=== PATIENT | male | born 1960 | race African-American/Black ===

== ENCOUNTER 2017-10-27 02:38 | Inpatient (IN) | payer OTHER, MEDICAID ==
[2017-10-27] MEDS: ALBUTEROL 0.5% (NEB) 2.5 MG/0.5 ML AMP INH (03:01)
[2017-10-27] MEDS: IPRATROPIUM (NEB) 0.5 MG/2.5 ML AMP INH (03:01)
[2017-10-27] MEDS: METHYLPREDNISOLONE 125 MG INJ IV (03:18)
[2017-10-27 04:05] LABS: ADD MAN DIFF? NO
[2017-10-27 04:08] LABS: WHITE BLOOD COUNT 7.2 10^3/ul (4.8-10.8)
[2017-10-27 04:08] LABS: BASOPHIL # 0.1 10^3/ul (0.0-0.1); BASOPHILS % 1.1 % (0.0-2.0); EOSINOPHILS # 0.2 10^3/ul (0.0-0.5); EOSINOPHILS % 3.2 % (0.0-7.0); HEMOGLOBIN 12.4 g/dl (14.0-18.0); LYMPHOCYTES # 2.5 10^3/ul (0.8-2.9); LYMPHOCYTES % 34.8 % (15.0-51.0); MEAN CORPUSCULAR HEMOGLOBIN 33.8 pg (29.0-33.0); MEAN CORPUSCULAR HGB CONC 32.6 g/dl (32.0-37.0); MEAN CORPUSCULAR VOLUME 103.5 fl (82.0-101.0); MEAN PLATELET VOLUME 11.9 fl (7.4-10.4); MONOCYTE # 0.5 10^3/ul (0.3-0.9); MONOCYTES % 7.1 % (0.0-11.0); NEUTROPHIL # 3.8 10^3/ul (1.6-7.5); NEUTROPHILS % 52.8 % (39.0-77.0); NUCLEATED RED BLOOD CELLS% 0.6 /100WBC (0.0-0.0); PLATELET COUNT 212 10^3/UL (140-415); RED BLOOD COUNT 3.67 10^6/ul (4.70-6.10); RED CELL DISTRIBUTION WIDTH 13.2 % (11.5-14.5)
[2017-10-27 04:27] LABS: INR 1.02; PROTIME 13.5 Sec (11.9-14.9); PT RATIO 1.1
[2017-10-27 04:28] LABS: PARTIAL THROMBOPLASTIN TIME 25.8 Sec (25.0-35.0)
[2017-10-27] MEDS: FUROSEMIDE 40 MG INJ IV ×2 (04:59→08:56)
[2017-10-27 05:12] LABS: ALANINE AMINOTRANSFERASE 30 IU/L (13-69); ALBUMIN 4.9 g/dl (3.3-4.9); ALKALINE PHOSPHATASE 65 IU/L (42-121); ANION GAP 26 (8-16); ASPARTATE AMINO TRANSFERASE 25 IU/L (15-46); BILIRUBIN,INDIRECT 0.6 mg/dl (0-1.1); BILIRUBIN,TOTAL 0.6 mg/dl (0.2-1.3); BLOOD UREA NITROGEN 42 mg/dl (7-20); CALCIUM 10.3 mg/dl (8.4-10.2); CARBON DIOXIDE 28 mmol/L (21-31); CHLORIDE 96 mmol/L (97-110); CREATININE 10.96 mg/dl (0.61-1.24); GLUCOSE 150 mg/dl (70-220); POTASSIUM 4.5 mmol/L (3.5-5.1); SODIUM 145 mmol/L (135-144); TOTAL PROTEIN 8.4 g/dl (6.1-8.1)
[2017-10-27 05:24] LABS: TROPONIN-I 0.111 ng/ml (0.00-0.12)
[2017-10-27 05:25] LABS: AADO2 Arterial 563.1 mmHg (7.0-24.0); Allen Test ACCEPTAB; Arterial Base Excess 0.1 mmol/L (-3.0-3); Arterial Blood Gas Oxygen Sat 97.3 mmHG (95.0-98.0); Arterial COHb 0.6 % (0.0-3.0); Arterial Fraction of Oxyhgb 96.6 % (93.0-99.0); Arterial HCO3 25.3 mmol/L (22.0-26.0); Arterial MetHb 0.1 % (0.0-1.5); Arterial Total Hemglobin 12.7 g/dl (12.0-18.0); Arterial pCO2 42.9 mmhg (35-45); Blood Gas IEPAP 20/5; Blood Gas PS 15; MODE BIPAP - S/T; Site Right Radial
[2017-10-27 05:37] LABS: B-TYPE NATRIURETIC PEPTIDE 91400 PG/ML (0-125)
[2017-10-27] MEDS ORDERED: LORAZEPAM 0.5 MG TAB PO (07:00)
[2017-10-27] MEDS ORDERED: morphine 2 MG INJ IV (07:00)
[2017-10-27] MEDS ORDERED: ACETAMINOPHEN 325 MG TAB PO (07:00)
[2017-10-27] MEDS ORDERED: ONDANSETRON 4 MG INJ IV (07:00)
[2017-10-27] MEDS ORDERED: NACL 0.9% 3 ML SYG IV (07:00)
[2017-10-27] MEDS: FAMOTIDINE 20 MG TAB PO ×2 (08:51→21:18)
[2017-10-27] MEDS: ASPIRIN 325 MG TAB PO (08:51)
[2017-10-27] MEDS: CLOPIDOGREL 75 MG TAB PO (08:51)
[2017-10-27] MEDS: NICOTINE (7 MG/24 HR) PATCH TRANSDERM (08:51)
[2017-10-27] MEDS: LISINOPRIL 10 MG TAB PO (08:52)
[2017-10-27] MEDS: FOLIC ACID 1 MG TAB PO (08:52)
[2017-10-27] MEDS: MULTIVIT/CA CARB/B CMPLX/FA TAB PO (08:52)
[2017-10-27] MEDS: HEPARIN 5,000 UNIT/0.5 ML VIAL SC ×2 (08:55→21:19)
[2017-10-27 11:06] LABS: CREATINE KINASE 140 IU/L (23-200)
[2017-10-27 11:18] LABS: CK INDEX 1.5; TROPONIN-I 0.081 ng/ml (0.00-0.12)
[2017-10-27 11:21] LABS: CK-MB 2.04 ng/ml (0.0-2.4)
[2017-10-27] MEDS: ATORVASTATIN 20 MG TAB PO (22:20)
[2017-10-28] MEDS: MULTIVIT/CA CARB/B CMPLX/FA TAB PO (08:40)
[2017-10-28] MEDS: NICOTINE (7 MG/24 HR) PATCH TRANSDERM (08:40)
[2017-10-28] MEDS: FAMOTIDINE 20 MG TAB PO ×2 (08:40→20:22)
[2017-10-28] MEDS: ASPIRIN 325 MG TAB PO (08:41)
[2017-10-28] MEDS: CLOPIDOGREL 75 MG TAB PO (08:41)
[2017-10-28] MEDS: FOLIC ACID 1 MG TAB PO (08:41)
[2017-10-28] MEDS: FUROSEMIDE 40 MG INJ IV (08:41)
[2017-10-28] MEDS: LISINOPRIL 10 MG TAB PO (08:41)
[2017-10-28] MEDS: HEPARIN 5,000 UNIT/0.5 ML VIAL SC ×2 (08:43→20:24)
[2017-10-28 08:48] LABS: ADD MAN DIFF? NO
[2017-10-28 09:10] LABS: BASOPHILS % 0.1 % (0.0-2.0); HEMATOCRIT 32.4 % (42.0-52.0); HEMOGLOBIN 10.6 g/dl (14.0-18.0); LYMPHOCYTES # 0.9 10^3/ul (0.8-2.9); LYMPHOCYTES % 10.2 % (15.0-51.0); MEAN CORPUSCULAR HEMOGLOBIN 33.4 pg (29.0-33.0); MEAN CORPUSCULAR HGB CONC 32.7 g/dl (32.0-37.0); MEAN CORPUSCULAR VOLUME 102.2 fl (82.0-101.0); MEAN PLATELET VOLUME 12.8 fl (7.4-10.4); MONOCYTE # 0.8 10^3/ul (0.3-0.9); MONOCYTES % 9.3 % (0.0-11.0); NEUTROPHIL # 7.1 10^3/ul (1.6-7.5); NEUTROPHILS % 80.1 % (39.0-77.0); NUCLEATED RED BLOOD CELLS% 0.2 /100WBC (0.0-0.0); PLATELET COUNT 157 10^3/UL (140-415); RED BLOOD COUNT 3.17 10^6/ul (4.70-6.10); RED CELL DISTRIBUTION WIDTH 13.2 % (11.5-14.5)
[2017-10-28 09:10] LABS: WHITE BLOOD COUNT 8.9 10^3/ul (4.8-10.8)
[2017-10-28 09:23] LABS: HEMOGLOBIN A1C 5.5 % (0-5.9)
[2017-10-28 09:55] LABS: ALANINE AMINOTRANSFERASE 23 IU/L (13-69); ALBUMIN 3.7 g/dl (3.3-4.9); ALBUMIN/GLOBULIN RATIO 1.23; ALKALINE PHOSPHATASE 62 IU/L (42-121); ANION GAP 18 (8-16); ASPARTATE AMINO TRANSFERASE 14 IU/L (15-46); BILIRUBIN,INDIRECT 0.2 mg/dl (0-1.1); BILIRUBIN,TOTAL 0.2 mg/dl (0.2-1.3); BLOOD UREA NITROGEN 53 mg/dl (7-20); CALCIUM 9.2 mg/dl (8.4-10.2); CARBON DIOXIDE 32 mmol/L (21-31); CHLORIDE 92 mmol/L (97-110); CHOLESTEROL 148 mg/dl (100-200); CREATININE 9.18 mg/dl (0.61-1.24); GLUCOSE 175 mg/dl (70-220); HDL CHOLESTEROL 49 mg/dl (28-71); LDL CHOLESTEROL,CALCULATED 83 mg/dl; POTASSIUM 3.9 mmol/L (3.5-5.1); SODIUM 138 mmol/L (135-144); TOTAL PROTEIN 6.7 g/dl (6.1-8.1); TRIGLYCERIDES 78 mg/dl (0-149)
[2017-10-28] MEDS: ALBUTEROL/IPRATROPIUM (NEB) 3 ML AMP HHN ×2 (12:30→21:19)
[2017-10-28] MEDS: ATORVASTATIN 20 MG TAB PO (20:22)
[2017-10-29] MEDS: ASPIRIN 325 MG TAB PO (08:56)
[2017-10-29] MEDS: CLOPIDOGREL 75 MG TAB PO (08:56)
[2017-10-29] MEDS: NICOTINE (7 MG/24 HR) PATCH TRANSDERM (08:56)
[2017-10-29] MEDS: FUROSEMIDE 40 MG INJ IV (08:56)
[2017-10-29] MEDS: MULTIVIT/CA CARB/B CMPLX/FA TAB PO (08:56)
[2017-10-29] MEDS: FAMOTIDINE 20 MG TAB PO ×2 (08:57→21:07)
[2017-10-29] MEDS: HEPARIN 5,000 UNIT/0.5 ML VIAL SC ×2 (08:58→21:12)
[2017-10-29] MEDS: LISINOPRIL 10 MG TAB PO (09:00)
[2017-10-29] MEDS: FOLIC ACID 1 MG TAB PO (09:03)
[2017-10-29 09:53] LABS: ALANINE AMINOTRANSFERASE 25 IU/L (13-69); ALBUMIN 4.2 g/dl (3.3-4.9); ALKALINE PHOSPHATASE 73 IU/L (42-121); ANION GAP 19 (8-16); ASPARTATE AMINO TRANSFERASE 12 IU/L (15-46); BILIRUBIN,INDIRECT 0.1 mg/dl (0-1.1); BILIRUBIN,TOTAL 0.1 mg/dl (0.2-1.3); BLOOD UREA NITROGEN 74 mg/dl (7-20); CALCIUM 9.2 mg/dl (8.4-10.2); CARBON DIOXIDE 30 mmol/L (21-31); CHLORIDE 92 mmol/L (97-110); GLUCOSE 157 mg/dl (70-220); POTASSIUM 4.1 mmol/L (3.5-5.1); SODIUM 137 mmol/L (135-144); TOTAL PROTEIN 7.2 g/dl (6.1-8.1)
[2017-10-29] MEDS: ATORVASTATIN 20 MG TAB PO (21:07)
[2017-10-30 02:37] LABS: ANION GAP 19 (8-16); BLOOD UREA NITROGEN 48 mg/dl (7-20); CALCIUM 8.8 mg/dl (8.4-10.2); CARBON DIOXIDE 30 mmol/L (21-31); CHLORIDE 97 mmol/L (97-110); CREATININE 8.41 mg/dl (0.61-1.24); GLUCOSE 158 mg/dl (70-220); POTASSIUM 3.7 mmol/L (3.5-5.1); SODIUM 142 mmol/L (135-144)
[2017-10-30] MEDS: POTASSIUM CHLORIDE (SR) 20 MEQ TAB PO (06:23)
[2017-10-30] MEDS: NICOTINE (7 MG/24 HR) PATCH TRANSDERM (08:28)
[2017-10-30] MEDS: CLOPIDOGREL 75 MG TAB PO (08:28)
[2017-10-30] MEDS: ASPIRIN 325 MG TAB PO (08:28)
[2017-10-30] MEDS: MULTIVIT/CA CARB/B CMPLX/FA TAB PO (08:28)
[2017-10-30] MEDS: LISINOPRIL 10 MG TAB PO (08:28)
[2017-10-30] MEDS: FOLIC ACID 1 MG TAB PO (08:29)
[2017-10-30] MEDS: FAMOTIDINE 20 MG TAB PO (08:29)
[2017-10-30] MEDS: HEPARIN 5,000 UNIT/0.5 ML VIAL SC (08:31)
[2017-10-30] MEDS: GUAIFENESIN 20 MG/ML 5ML CUP PO (09:32)
== END 2017-10-30 13:00 | disposition home or self-care (01) | DRG 291 ==
LOC: MS4 05:56 → E/R 02:38 → MS4 21:47
PROC: 5A1D70Z Performance of Urinary Filtration, Intermittent, Less than 6 Hours Per Day (ICD-10-PCS; principal; 2017-10-27)
DX: I13.2 Hypertensive heart and chronic kidney disease with heart failure and with stage 5 chronic kidney disease, or end stage renal disease (principal); I50.23 Acute on chronic systolic (congestive) heart failure; N18.6 End stage renal disease; E11.22 Type 2 diabetes mellitus with diabetic chronic kidney disease; E87.70 Fluid overload, unspecified; Z99.2 Dependence on renal dialysis; I25.10 Atherosclerotic heart disease of native coronary artery without angina pectoris; E78.00 Pure hypercholesterolemia, unspecified; H54.62 Unqualified visual loss, left eye, normal vision right eye; F17.200 Nicotine dependence, unspecified, uncomplicated; J44.9 Chronic obstructive pulmonary disease, unspecified; Z95.810 Presence of automatic (implantable) cardiac defibrillator; Z86.73 Personal history of transient ischemic attack (TIA), and cerebral infarction without residual deficits; Z79.02 Long term (current) use of antithrombotics/antiplatelets; Z79.82 Long term (current) use of aspirin
CPT/HCPCS: 36600; 71045; 71046; 80048; 80053; 80061; 82550; 82553; 82803; 83036; 83735; 83880; 84484; 85025; 85610; 85730; 87081; 90935; 93005; 93306; 94640; 94644; 94660; 96372; 96374; 96375; 99285-25

== ENCOUNTER 2018-09-18 09:28 | Emergency (ER) | payer OTHER, MEDICAID ==
[2018-09-18 11:33] LABS: ALBUMIN 4.2 g/dl (3.3-4.9); ALBUMIN/GLOBULIN RATIO 1.13; ALKALINE PHOSPHATASE 71 IU/L (42-121); ANION GAP 13 (5-13); ASPARTATE AMINO TRANSFERASE 18 IU/L (15-46); BILIRUBIN,INDIRECT 0.6 mg/dl (0-1.1); BILIRUBIN,TOTAL 0.6 mg/dl (0.2-1.3); BLOOD UREA NITROGEN 5 mg/dl (7-20); CARBON DIOXIDE 37 mmol/L (21-31); CHLORIDE 91 mmol/L (97-110); CREATININE 2.82 mg/dl (0.61-1.24); Estimated GFR 28 mL/min (>60); GLUCOSE 116 mg/dl (70-220); INR 1.01; POTASSIUM 3.1 mmol/L (3.5-5.1); PROTIME 13.4 Sec (11.9-14.9); SODIUM 141 mmol/L (135-144); TOTAL PROTEIN 7.9 g/dl (6.1-8.1)
[2018-09-18 11:34] LABS: PARTIAL THROMBOPLASTIN TIME 37.3 Sec (23.0-35.0)
[2018-09-18 11:36] LABS: ADD MAN DIFF? NO
[2018-09-18 11:40] LABS: BASOPHILS % 0.6 % (0.0-2.0); EOSINOPHILS # 0.4 10^3/ul (0.0-0.5); EOSINOPHILS % 7.2 % (0.0-7.0); HEMATOCRIT 23.9 % (42.0-52.0); HEMOGLOBIN 7.2 g/dl (14.0-18.0); LYMPHOCYTES % 19.7 % (15.0-51.0); MEAN CORPUSCULAR HEMOGLOBIN 31.3 pg (29.0-33.0); MEAN CORPUSCULAR HGB CONC 30.1 g/dl (32.0-37.0); MEAN CORPUSCULAR VOLUME 103.9 fl (82.0-101.0); MEAN PLATELET VOLUME 9.9 fl (7.4-10.4); MONOCYTE # 0.4 10^3/ul (0.3-0.9); NEUTROPHIL # 3.1 10^3/ul (1.6-7.5); NEUTROPHILS % 63.1 % (39.0-77.0); NUCLEATED RED BLOOD CELLS% 0.6 /100WBC (0.0-0.0); PLATELET COUNT 374 10^3/UL (140-415); RED CELL DISTRIBUTION WIDTH 15.9 % (11.5-14.5)
[2018-09-18 11:40] LABS: WHITE BLOOD COUNT 4.9 10^3/ul (4.8-10.8)
[2018-09-18 11:53] LABS: ALANINE AMINOTRANSFERASE < 6 IU/L (13-69)
[2018-09-18 14:17] LABS: IMMEDIATE SPIN CROSSMATCH 1 2
== END 2018-09-18 16:46 | disposition home or self-care (01) ==
LOC: E/R 09:28
PROVIDERS: Pediatrics Neonatal-Perinatal Medicine
DX: D64.9 Anemia, unspecified (principal); S81.802A Unspecified open wound, left lower leg, initial encounter; E11.22 Type 2 diabetes mellitus with diabetic chronic kidney disease; N18.9 Chronic kidney disease, unspecified; F17.210 Nicotine dependence, cigarettes, uncomplicated; X58.XXXA Exposure to other specified factors, initial encounter; Y92.9 Unspecified place or not applicable; Z79.01 Long term (current) use of anticoagulants; Z99.2 Dependence on renal dialysis; Z79.82 Long term (current) use of aspirin
CPT/HCPCS: 36430; 80053; 85025; 85610; 85730; 86850; 86900; 86901; 86920; 99285-25

== ENCOUNTER 2019-06-07 06:02 | Emergency (ER) | payer MEDICARE, MEDICAID, OTHER ==
[2019-06-07 06:54] LABS: ADD MAN DIFF? NO
[2019-06-07 06:56] LABS: BASOPHILS % 0.5 % (0.0-2.0); EOSINOPHILS # 0.2 10^3/ul (0.0-0.5); EOSINOPHILS % 3.2 % (0.0-7.0); HEMATOCRIT 32.4 % (42.0-52.0); HEMOGLOBIN 10.1 g/dl (14.0-18.0); LYMPHOCYTES % 15.9 % (15.0-51.0); MEAN CORPUSCULAR HEMOGLOBIN 33.1 pg (29.0-33.0); MEAN CORPUSCULAR HGB CONC 31.2 g/dl (32.0-37.0); MEAN CORPUSCULAR VOLUME 106.2 fl (82.0-101.0); MEAN PLATELET VOLUME 9.4 fl (7.4-10.4); MONOCYTE # 0.5 10^3/ul (0.3-0.9); MONOCYTES % 7.3 % (0.0-11.0); NEUTROPHIL # 4.7 10^3/ul (1.6-7.5); NEUTROPHILS % 72.8 % (39.0-77.0); PLATELET COUNT 274 10^3/UL (140-415); RED BLOOD COUNT 3.05 10^6/ul (4.70-6.10)
[2019-06-07 06:56] LABS: WHITE BLOOD COUNT 6.5 10^3/ul (4.8-10.8)
[2019-06-07 07:16] LABS: ANION GAP 11 (5-13); BLOOD UREA NITROGEN 51 mg/dl (7-20); C-REACTIVE PROTEIN 0.9 mg/dl (0.0-0.9); CARBON DIOXIDE 33 mmol/L (21-31); CHLORIDE 93 mmol/L (97-110); CREATININE 7.41 mg/dl (0.61-1.24); Estimated GFR 9 mL/min (>60); GLUCOSE 112 mg/dl (70-220); POTASSIUM 5.4 mmol/L (3.5-5.1); SODIUM 137 mmol/L (135-144)
[2019-06-07] MEDS: FOLIC ACID 1 MG TAB PO (07:33)
[2019-06-07] MEDS: THIAMINE 100 MG TAB PO (07:33)
[2019-06-07] MEDS: HYDROCODONE/APAP (5/325) TAB PO (07:35)
[2019-06-07 08:14] LABS: ERYTHROCYTE SEDIMENTATION RATE 45 mm/Hr (0-20)
== END 2019-06-07 09:50 | disposition home or self-care (01) ==
LOC: E/R 06:02
DX: M96.89 Other intraoperative and postprocedural complications and disorders of the musculoskeletal system (principal); N18.6 End stage renal disease; E11.22 Type 2 diabetes mellitus with diabetic chronic kidney disease; I12.0 Hypertensive chronic kidney disease with stage 5 chronic kidney disease or end stage renal disease; T87.89 Other complications of amputation stump; E87.5 Hyperkalemia; E87.3 Alkalosis; D53.9 Nutritional anemia, unspecified; F17.210 Nicotine dependence, cigarettes, uncomplicated; Y65.8 Other specified misadventures during surgical and medical care; Z79.82 Long term (current) use of aspirin; Z79.01 Long term (current) use of anticoagulants; Z99.2 Dependence on renal dialysis; Z86.73 Personal history of transient ischemic attack (TIA), and cerebral infarction without residual deficits
CPT/HCPCS: 73590; 80048; 85025; 85651; 86140; 93971; 99284-25